=== PATIENT | female | born 1980 | race Caucasian/White ===

== ENCOUNTER 2021-08-18 05:44 | Emergency (ER) | payer MEDICAID, OTHER ==
[~2021-08-18] VITALS: Ht 162.6 cm; Wt 78.0 kg
[2021-08-18 05:52] VITALS: BP 125/65
[2021-08-18] MEDS ORDERED: DIPHENHYDRAMINE 50MG/ML VIAL IM ONE (07:45)
[2021-08-18] MEDS ORDERED: ZIPRASIDONE MESYLATE 20MG/VIAL IM ONE (07:45)
[2021-08-18] MEDS ORDERED: LEVOFLOXACIN 500MG TABLET PO ONE (07:45)
[2021-08-18] MEDS ORDERED: SULFAMETHOXAZOLE/TRIMETHOPRIM 400/80MG TAB PO ONE (07:45)
[2021-08-18 09:10] LABS: CHLORIDE 110 mEq/L (98-107)
[2021-08-18 09:21] LABS: BASOPHILS % 0.3 % (0.0-2.0); EOSINOPHILS % 1.8 % (0.0-5.0); HEMATOCRIT. 27.6 % (36.0-48.0); HEMOGLOBIN. 9.3 g/dL (12.0-16.0); LYMPHOCYTES % 19.1 % (20.0-50.0); MEAN CORPUSCULAR HEMOGLOBIN 30.6 pg (28.0-32.0); MEAN CORPUSCULAR VOLUME 90.8 fL (81.0-99.0); MEAN PLATELET VOLUME 8.2 fl (7.4-10.4); MONOCYTES % 5.9 % (2.0-8.0); NEUTROPHILS % 72.9 % (40.0-76.0); PLATELET 307 x1000/uL (130-400); RED BLOOD CELL COUNT 3.04 mill/uL (4.2-5.4); RED CELL DISTRIBUTION WIDTH 18.1 % (11.6-14.6)
[2021-08-18] MEDS ORDERED: AZIT250T MT (12:00)
[2021-08-18] MEDS ORDERED: SULF1TAB48 MT (12:00)
== END 2021-08-18 12:16 ==
LOC: ER 05:44
DX: L03.116 Cellulitis of left lower limb (principal); F41.9 Anxiety disorder, unspecified; Z88.0 Allergy status to penicillin
CPT/HCPCS: 36415; 74018; 80048; 85025; 96372; 99284; J1200; J3486